=== PATIENT | female | born 1940 | race Caucasian/White ===

== ENCOUNTER 2016-07-29 22:53 | Observation (INO) | payer MEDICARE ==
[~2016-07-29 22:53] MED LIST: ARICEPT10 MG PO; B-121000 MCG PO; FEOSOL325 MG PO; LEVAQUIN750 MG PO; LIPITOR10 MG PO; MEDROL4 M1 PO; MEVACOR10 MG PO; OMEPRAZOLE20 MG PO; PLAVIX75 MG PO; PRILOSEC40 MG PO; SEROQUEL100 MG PO; ZOLOFT100 MG PO
[2016-09-06] MEDS ORDERED: OMEPRAZOLE20 MG PO (16:35)
[2016-09-06] MEDS ORDERED: ARICEPT10 MG PO (16:35)
[2016-09-06] MEDS ORDERED: ASPIRIN EC81 MG PO (16:36)
[2016-09-06] MEDS ORDERED: B-121000 MCG PO (16:36)
[2016-09-06] MEDS ORDERED: IPRAT-ALBUT 0.5-3 ML NEB (16:36)
[2016-09-06] MEDS ORDERED: ACETAMINOPHEN325 MG PO (16:36)
[2016-09-06] MEDS ORDERED: ACETAMINOPHEN650 MG RC (16:37)
[2016-09-06] MEDS ORDERED: ALBUTEROL2.5 MG/0.5 NEB (16:37)
[2016-09-06] MEDS ORDERED: MIRTAZAPINE7.5 MG PO (16:37)
[2016-09-06] MEDS ORDERED: CULTURELLE1 EACH PO (16:38)
[2016-09-06] MEDS ORDERED: MUCINEX600 MG PO (16:38)
[2016-09-06] MEDS ORDERED: CLEOCIN HCL300 MG PO (16:38)
== END 2016-08-02 15:33 | disposition swing bed (61) ==
LOC: ER 22:53 → MED 07-30 03:03
PROVIDERS: ADMIT Internal Medicine
DX: J18.9 Pneumonia, unspecified organism (principal); J44.9 Chronic obstructive pulmonary disease, unspecified; F03.90 Unspecified dementia, unspecified severity, without behavioral disturbance, psychotic disturbance, mood disturbance, and anxiety; J96.10 Chronic respiratory failure, unspecified whether with hypoxia or hypercapnia; I25.10 Atherosclerotic heart disease of native coronary artery without angina pectoris; D50.9 Iron deficiency anemia, unspecified; K21.9 Gastro-esophageal reflux disease without esophagitis; D72.829 Elevated white blood cell count, unspecified; E46 Unspecified protein-calorie malnutrition; Z98.61 Coronary angioplasty status; Z79.899 Other long term (current) drug therapy; Z88.0 Allergy status to penicillin; Z82.49 Family history of ischemic heart disease and other diseases of the circulatory system
CPT/HCPCS: 36415; 87502; 96361; 96365; 96366; 96372; 96374; 96375; 96376; 97161-GP; 97166; G0378; J1650; J7050

== ENCOUNTER 2016-08-02 16:31 | Inpatient (IN) | payer MEDICARE ==
--- NOTE | 2016-08-07 11:07 | NUR ---
0900 has meplix to coccyx nasim area
[2016-08-09] MEDS ORDERED: OMEPRAZOLE20 MG PO (13:09)
[2016-08-09] MEDS ORDERED: B-121000 MCG PO (13:10)
[2016-08-09] MEDS ORDERED: ASPIRIN EC81 MG PO (13:10)
[2016-08-09] MEDS ORDERED: ARICEPT10 MG PO (13:10)
[2016-08-09] MEDS ORDERED: IPRAT-ALBUT 0.5-3 ML NEB (13:11)
[2016-08-09] MEDS ORDERED: ACETAMINOPHEN325 MG PO (13:12)
[2016-08-09] MEDS ORDERED: ACETAMINOPHEN650 MG RC (13:12)
[2016-09-06] MEDS ORDERED: OMEPRAZOLE20 MG PO (16:35)
[2016-09-06] MEDS ORDERED: ARICEPT10 MG PO (16:35)
[2016-09-06] MEDS ORDERED: ASPIRIN EC81 MG PO (16:36)
[2016-09-06] MEDS ORDERED: ACETAMINOPHEN325 MG PO (16:36)
[2016-09-06] MEDS ORDERED: B-121000 MCG PO (16:36)
[2016-09-06] MEDS ORDERED: IPRAT-ALBUT 0.5-3 ML NEB (16:36)
[2016-09-06] MEDS ORDERED: MIRTAZAPINE7.5 MG PO (16:37)
[2016-09-06] MEDS ORDERED: ALBUTEROL2.5 MG/0.5 NEB (16:37)
[2016-09-06] MEDS ORDERED: ACETAMINOPHEN650 MG RC (16:37)
[2016-09-06] MEDS ORDERED: MUCINEX600 MG PO (16:38)
[2016-09-06] MEDS ORDERED: CULTURELLE1 EACH PO (16:38)
[2016-09-06] MEDS ORDERED: CLEOCIN HCL300 MG PO (16:38)
== END 2016-08-09 13:30 | DRG 190 ==
LOC: SWI 16:31
PROVIDERS: ADMIT Internal Medicine
DX: J44.0 Chronic obstructive pulmonary disease with (acute) lower respiratory infection (principal); J18.9 Pneumonia, unspecified organism; J96.10 Chronic respiratory failure, unspecified whether with hypoxia or hypercapnia; E46 Unspecified protein-calorie malnutrition; Z68.1 Body mass index [BMI] 19.9 or less, adult; G30.9 Alzheimer's disease, unspecified; F02.80 Dementia in other diseases classified elsewhere, unspecified severity, without behavioral disturbance, psychotic disturbance, mood disturbance, and anxiety; D50.9 Iron deficiency anemia, unspecified; K21.9 Gastro-esophageal reflux disease without esophagitis; Z99.81 Dependence on supplemental oxygen; I25.10 Atherosclerotic heart disease of native coronary artery without angina pectoris; Z98.61 Coronary angioplasty status; Z87.01 Personal history of pneumonia (recurrent); E53.8 Deficiency of other specified B group vitamins; Z88.0 Allergy status to penicillin; Z82.49 Family history of ischemic heart disease and other diseases of the circulatory system
CPT/HCPCS: 97162-GP; 97166; J1650

== ENCOUNTER 2016-08-29 15:09 | Emergency (ER) | payer MEDICARE ==
[~2016-08-29 15:09] MED LIST changes: +ACETAMINOPHEN325 MG PO; +ACETAMINOPHEN650 MG RC; +ASPIRIN EC81 MG PO; +IPRAT-ALBUT 0.5-3 ML NEB
[2016-09-06] MEDS ORDERED: OMEPRAZOLE20 MG PO (16:35)
[2016-09-06] MEDS ORDERED: ARICEPT10 MG PO (16:35)
[2016-09-06] MEDS ORDERED: IPRAT-ALBUT 0.5-3 ML NEB (16:36)
[2016-09-06] MEDS ORDERED: ACETAMINOPHEN325 MG PO (16:36)
[2016-09-06] MEDS ORDERED: B-121000 MCG PO (16:36)
[2016-09-06] MEDS ORDERED: ASPIRIN EC81 MG PO (16:36)
[2016-09-06] MEDS ORDERED: ACETAMINOPHEN650 MG RC (16:37)
[2016-09-06] MEDS ORDERED: MIRTAZAPINE7.5 MG PO (16:37)
[2016-09-06] MEDS ORDERED: ALBUTEROL2.5 MG/0.5 NEB (16:37)
[2016-09-06] MEDS ORDERED: MUCINEX600 MG PO (16:38)
[2016-09-06] MEDS ORDERED: CULTURELLE1 EACH PO (16:38)
[2016-09-06] MEDS ORDERED: CLEOCIN HCL300 MG PO (16:38)
== END 2016-08-29 20:38 | disposition critical access hospital (66) ==
LOC: ER 15:09
DX: J44.1 Chronic obstructive pulmonary disease with (acute) exacerbation (principal); R09.02 Hypoxemia; E78.5 Hyperlipidemia, unspecified; J44.9 Chronic obstructive pulmonary disease, unspecified; I25.10 Atherosclerotic heart disease of native coronary artery without angina pectoris; G30.9 Alzheimer's disease, unspecified; F02.80 Dementia in other diseases classified elsewhere, unspecified severity, without behavioral disturbance, psychotic disturbance, mood disturbance, and anxiety; Z87.891 Personal history of nicotine dependence; Z95.5 Presence of coronary angioplasty implant and graft; Z79.02 Long term (current) use of antithrombotics/antiplatelets; Z79.899 Other long term (current) drug therapy; Z88.0 Allergy status to penicillin; Z99.81 Dependence on supplemental oxygen
CPT/HCPCS: 36415; 96365; 96375; Q9967

== ENCOUNTER 2016-08-29 15:09 | Inpatient (IN) | payer MEDICARE ==
[2016-09-06] MEDS ORDERED: ARICEPT10 MG PO (16:35)
[2016-09-06] MEDS ORDERED: OMEPRAZOLE20 MG PO (16:35)
[2016-09-06] MEDS ORDERED: ASPIRIN EC81 MG PO (16:36)
[2016-09-06] MEDS ORDERED: ACETAMINOPHEN325 MG PO (16:36)
[2016-09-06] MEDS ORDERED: B-121000 MCG PO (16:36)
[2016-09-06] MEDS ORDERED: IPRAT-ALBUT 0.5-3 ML NEB (16:36)
[2016-09-06] MEDS ORDERED: ACETAMINOPHEN650 MG RC (16:37)
[2016-09-06] MEDS ORDERED: ALBUTEROL2.5 MG/0.5 NEB (16:37)
[2016-09-06] MEDS ORDERED: MIRTAZAPINE7.5 MG PO (16:37)
[2016-09-06] MEDS ORDERED: CLEOCIN HCL300 MG PO (16:38)
[2016-09-06] MEDS ORDERED: CULTURELLE1 EACH PO (16:38)
[2016-09-06] MEDS ORDERED: MUCINEX600 MG PO (16:38)
== END 2016-09-02 16:50 | disposition hospice, home (50) | DRG 189 ==
LOC: ER 15:09 → MED 20:39
PROVIDERS: ADMIT Internal Medicine
DX: J96.21 Acute and chronic respiratory failure with hypoxia (principal); J18.9 Pneumonia, unspecified organism; J44.0 Chronic obstructive pulmonary disease with (acute) lower respiratory infection; J44.1 Chronic obstructive pulmonary disease with (acute) exacerbation; G30.9 Alzheimer's disease, unspecified; F02.80 Dementia in other diseases classified elsewhere, unspecified severity, without behavioral disturbance, psychotic disturbance, mood disturbance, and anxiety; Y95 Nosocomial condition; Z99.81 Dependence on supplemental oxygen; I25.10 Atherosclerotic heart disease of native coronary artery without angina pectoris; Z98.61 Coronary angioplasty status; K21.9 Gastro-esophageal reflux disease without esophagitis; E53.8 Deficiency of other specified B group vitamins; Z88.0 Allergy status to penicillin; Z87.891 Personal history of nicotine dependence; Z79.82 Long term (current) use of aspirin; Z79.899 Other long term (current) drug therapy; Z82.49 Family history of ischemic heart disease and other diseases of the circulatory system
CPT/HCPCS: 36415; 92610; 94664; 97162-GP; 97166; J1650; J7050; Q9967

== ENCOUNTER 2016-10-04 11:13 | Emergency (ER) | payer OTHER, MEDICARE ==
[~2016-10-04 11:13] MED LIST changes: +ALBUTEROL2.5 MG/0.5 NEB; +CLEOCIN HCL300 MG PO; +CULTURELLE1 EACH PO; +MIRTAZAPINE7.5 MG PO; +MUCINEX600 MG PO
== END 2016-10-04 14:41 | disposition home or self-care (01) ==
LOC: ER 11:13
DX: J44.1 Chronic obstructive pulmonary disease with (acute) exacerbation (principal); F03.90 Unspecified dementia, unspecified severity, without behavioral disturbance, psychotic disturbance, mood disturbance, and anxiety; I25.2 Old myocardial infarction; Z87.891 Personal history of nicotine dependence; Z79.02 Long term (current) use of antithrombotics/antiplatelets; Z79.899 Other long term (current) drug therapy; Z88.0 Allergy status to penicillin; Z99.81 Dependence on supplemental oxygen; Z77.22 Contact with and (suspected) exposure to environmental tobacco smoke (acute) (chronic)
CPT/HCPCS: 36415; 87502; 96365; 96375; J0696